=== PATIENT | female | born 1970 | race Caucasian/White ===

== ENCOUNTER 2021-11-10 10:25 | Emergency (ER) | payer OTHER ==
[2021-11-10 11:15] VITALS: BP 127/78; PULSE 75; TEMP 98; BMI 27.4
== END 2021-11-10 12:12 | disposition home or self-care (01) ==
LOC: JERFT 10:25
DX: T17.208A Unspecified foreign body in pharynx causing other injury, initial encounter (principal)
CPT/HCPCS: 70360-TC-FY; 99283-25